=== PATIENT | male | born 1975 | race African-American/Black ===

== ENCOUNTER 2020-08-01 20:20 | Inpatient (IN) | payer OTHER ==
[~2020-08-01] VITALS: Ht 182.9 cm; Wt 90.1 kg
[~2020-08-01 20:20] MED LIST: CARISOPRODOL 3350 MG PO; IBUPROFEN 800800 MG PO; NAPROSYN500 MG PO; NORCO 5-325 TA1 EACH PO; SAVELLA50 MG
[2020-08-01] MEDS ORDERED: LISINOPRIL (20:37)
[2020-08-01] MEDS ORDERED: METOPROLOL (20:38)
[2020-08-01] MEDS ORDERED: ATORVASTATIN (20:38)
[2020-08-01] MEDS ORDERED: METFORMIN (20:38)
[2020-08-01] MEDS ORDERED: CHILDREN'S ASPI81 M1 PO (20:39)
[2020-08-01 20:40] VITALS: BP 205/119
[2020-08-01 21:05] LABS: ABSOLUTE EOSINOPHILS 0.1 thou/uL (0.0-0.7); ABSOLUTE LYMPHOCYTES 2.6 thou/uL (0.8-5.3); ABSOLUTE MONOCYTES 0.9 thou/uL (0.0-1.2); BASOPHILS 0.6 %; EOSINOPHILS 1.4 %; HEMATOCRIT 44.6 % (42.0-52.0); HEMOGLOBIN 14.8 gm/dL (14.0-18.0); LYMPHOCYTES 30.4 %; MCH 30.9 pg (26.0-34.0); MCHC 33.1 g/dL (28.0-37.0); MCV 93.3 fL (80.0-100.0); MONOCYTES 9.8 %; NUCLEATED RBCS 0 /100WBC; PLATELET COUNT* 248 thou/uL (150-400); POLYS 57.8 %; RBC 4.78 mil/uL (4.50-6.00); RDW-CV 14.5 % (10.5-14.5); WBC 8.7 thou/uL (4.0-11.0)
[2020-08-01 21:13] LABS: POTASSIUM 3.9 mmol/L (3.5-5.1)
[2020-08-01 23:50] VITALS: BP 138/86
[2020-08-02] VITALS: BP 156/89
[2020-08-02] MEDS ORDERED: LIPITOR 20 MG T20 M1 PO (01:12)
[2020-08-02] MEDS ORDERED: PRINIVIL20 M1 PO (01:12)
[2020-08-02] MEDS ORDERED: METFORMIN HCL500 MG PO (01:13)
[2020-08-02] MEDS ORDERED: KAPSPARGO SPRIN50 MG PO (01:13)
[2020-08-02 08:00] VITALS: BP 134/92
[2020-08-02 09:56] LABS: HEMATOCRIT 44.4 % (42.0-52.0); HEMOGLOBIN 14.8 gm/dL (14.0-18.0); MCH 31.3 pg (26.0-34.0); MCHC 33.3 g/dL (28.0-37.0); MPV 7.9 fl. (7.2-11.1); RBC 4.73 mil/uL (4.50-6.00); RDW-CV 14.7 % (10.5-14.5); WBC 6.2 thou/uL (4.0-11.0)
[2020-08-02 10:12] LABS: CALCIUM 9.5 mg/dL (8.5-10.1); CREATININE 1.1 mg/dL (0.6-1.3); MAGNESIUM 2.2 mg/dL (1.8-2.4); PHOSPHORUS* 3.1 mg/dL (2.5-4.9); POTASSIUM 3.9 mmol/L (3.5-5.1)
[2020-08-02] MEDS ORDERED: NORCO5 PO (15:44)
[2020-08-02 16:00] VITALS: BP 128/84
[2020-08-02 16:27] VITALS: BP 134/92
[2020-08-02] MEDS ORDERED: AUGMENTIN 875-1 EACH PO (16:44)
[2020-08-02 22:06] LABS: GLYCOHEMOGLOBIN (HGB A1C) 5.6 % (4.8-5.6)
== END 2020-08-02 17:15 | disposition home or self-care (01) | DRG 605 ==
LOC: M.ERS 20:20 → M.TBA-ER 22:36 → M.2W 22:36
PROVIDERS: Internal Medicine; Nurse Practitioner; ADMIT Internal Medicine; ATTEND Internal Medicine
DX: S30.0XXA Contusion of lower back and pelvis, initial encounter (principal); L02.31 Cutaneous abscess of buttock; D68.59 Other primary thrombophilia; L03.317 Cellulitis of buttock; E11.9 Type 2 diabetes mellitus without complications; E78.00 Pure hypercholesterolemia, unspecified; M79.7 Fibromyalgia; I25.10 Atherosclerotic heart disease of native coronary artery without angina pectoris; Z88.8 Allergy status to other drugs, medicaments and biological substances; Z88.6 Allergy status to analgesic agent; I25.2 Old myocardial infarction; Z95.5 Presence of coronary angioplasty implant and graft; Z83.3 Family history of diabetes mellitus; Z82.49 Family history of ischemic heart disease and other diseases of the circulatory system; Z80.1 Family history of malignant neoplasm of trachea, bronchus and lung; Z87.891 Personal history of nicotine dependence; X58.XXXA Exposure to other specified factors, initial encounter; Y93.89 Activity, other specified; Y92.89 Other specified places as the place of occurrence of the external cause; Y99.8 Other external cause status; Z20.822 Contact with and (suspected) exposure to COVID-19